=== PATIENT | male | born 1965 | race Caucasian/White ===

== ENCOUNTER 2020-07-21 13:32 | Emergency (ER) | payer OTHER ==
[~2020-07-21 13:32] MED LIST: BRILINTA 90 MG90 MG PO; COZAAR25 MG PO; ECOTRIN81 MG PO; JANUVIA100 MG PO; LIPITOR TAB 2020 MG PO; PLAVIX 75 MG TA75 MG PO; TOPROL XL 25 MG25 MG PO
[2020-07-21 14:38] LABS: HEMOGLOBIN 15.7 gm/dl (14.0-17.5); RED BLOOD COUNT 5.54 M/UL (4.20-5.50)
[2020-07-21 15:09] LABS: BUN/CREATININE RATIO 19 (0-10)
== END 2020-07-21 17:15 | disposition left against medical advice (07) ==
LOC: ER1 13:32
PROVIDERS: Family Medicine
DX: R07.9 Chest pain, unspecified (principal); I10 Essential (primary) hypertension; E11.9 Type 2 diabetes mellitus without complications; Z88.8 Allergy status to other drugs, medicaments and biological substances; Z53.20 Procedure and treatment not carried out because of patient's decision for unspecified reasons
CPT/HCPCS: 71045; 80053; 82550; 82553; 83690; 83735; 83874; 84484; 85025; 93005; 96365; 99285

== ENCOUNTER 2021-01-22 16:28 | Emergency (ER) | payer OTHER ==
[2021-01-22 20:45] LABS: HEMOGLOBIN 15.9 gm/dl (14.0-17.5); RED BLOOD COUNT 5.48 M/UL (4.20-5.50); WHITE BLOOD COUNT 8.2 K/UL (4.5-11.0)
[2021-01-22 21:13] LABS: BUN/CREATININE RATIO 17 (0-10)
== END 2021-01-22 21:50 | disposition home or self-care (01) ==
LOC: ER1 16:28
PROVIDERS: Family Medicine
DX: R07.89 Other chest pain (principal); E11.65 Type 2 diabetes mellitus with hyperglycemia; I10 Essential (primary) hypertension; I25.10 Atherosclerotic heart disease of native coronary artery without angina pectoris; I25.2 Old myocardial infarction; E78.5 Hyperlipidemia, unspecified; Z79.82 Long term (current) use of aspirin; Z79.01 Long term (current) use of anticoagulants
CPT/HCPCS: 71045; 80053; 82550; 82553; 83874; 84484; 85025; 93005; 99285

== ENCOUNTER → 2021-08-07 | Outpatient (CLI) | payer OTHER | LOC: HEART 5 14:06 | DX: R00.2 Palpitations (principal) ==

== ENCOUNTER → 2022-02-06 | Outpatient (CLI) | payer OTHER | LOC: HEART 5 13:52 | DX: I05.0 Rheumatic mitral stenosis (principal) | CPT/HCPCS: 93306 ==